=== PATIENT | male | born 1995 | race Caucasian/White ===

== ENCOUNTER 2017-11-23 09:06 | Emergency (ER) | payer OTHER ==
[2017-11-23 09:13] VITALS: BP 152/92; RESP 16; TEMP 98.6; O2SAT 97
--- NOTE | 2017-11-23 09:33 | EDPHY ---
H & P Time Seen by Provider: 11/23/17 09:21 HPI/ROS: CHIEF COMPLAINT: Left wrist injury HISTORY OF PRESENT ILLNESS: 22-year-old male presents to the emergency department with pain to the medial aspect of the left wrist. He denies any known trauma or injury, however he states that last night he remembers punching his right hand into his left palm which she does on occasion. He did not have pain initially but throughout the evening had increasing pain in the left wrist. He has pain now with range of motion especially. Denies any other trauma or injury. He is right-hand dominant. ROS: Denies numbness or tingling in his fingers, pain in his elbow or shoulder. Past Medical/Surgical History: Negative Social History: Single Smoking Status: Never smoked Physical Exam: On examination there is no obvious swelling noted to the left wrist. No abrasion or puncture wound. Normal sensation to light touch with normal 2 point discrimination. Reproducible pain with palpation to the medial aspect of the left wrist especially overlying the distal ulna. No palpable crepitus or other bony abnormality. He is able to fully supinate and pronate his left wrist however this does cause pain. He is also able to fully flex and extend as well as radial and ulnar deviate the left wrist without difficulty. Strong radial pulse at the left wrist. Constitutional: Initial Vital Signs Temperature (C) 37.0 C 11/23/17 09:10 Respiratory Rate 16 11/23/17 09:10 Blood Pressure 152/92 H 11/23/17 09:10 O2 Sat (%) 97 11/23/17 09:10 O2 Delivery Mode Room Air Allergies/Adverse Reactions: amoxicillin Allergy (Verified 11/23/17 09:09) Home Medications: Medication Instructions Recorded NK [No Known Home Meds] 11/23/17 MDM/Departure - MDM Imaging Results: Imaging Impressions Wrist X-Ray 11/23/17 09:14 Impression: Normal left wrist series. Imaging: I viewed and interpreted images myself Procedures: Patient was placed and Velcro wrist splint to the left wrist. This was examined post application in good placement with normal [employer]. ED Course/Re-evaluation: 22-year-old male presents to the emergency department with left wrist injury. X- rays reveal no obvious fractures. The patient was placed in a Velcro cock-up splint and given orthopedic referral. - Depart Disposition: Home, Routine, Self-Care Clinical Impression: Left wrist sprain Qualifiers: Encounter type: initial encounter Qualified Code(s): S63.502A - Unspecified sprain of left wrist, initial encounter Condition: Good Instructions: Wrist Sprain (ED) Additional Instructions: Splint for comfort and support. Ibuprofen 600mg every 8 hours for pain as directed. Referrals: James Randolph MD [Medical Doctor] - 5-7 days, call for appt. (Orthopedic hand surgeon on-call)
== END 2017-11-23 09:44 | disposition home or self-care (01) ==
DX: S63.502A Unspecified sprain of left wrist, initial encounter (principal); W22.8XXA Striking against or struck by other objects, initial encounter